=== PATIENT | male | born 1960 | race Caucasian/White ===

== ENCOUNTER 2017-02-26 11:25 | Observation (INO) ==
[2017-02-26] MEDS ORDERED: IPRATROPIUM/ALBUTEROL 3 ML AMPUL.NEB NEB ONE ×2 (11:44→11:45)
--- NOTE | 2017-02-26 11:50 | Emergency Department Note ---
SOB HPI - General Chief Complaint: Shortness of Breath/Dyspnea Stated Complaint: SOB Worse when laying down Time Seen by Provider: 02/26/17 11:31 Source: patient Mode of arrival: ambulatory Limitations: no limitations - History of Present Illness 56 year old male presents with 1 year history of shortness of breath. This has worsened in the last week. He has some chest tightness at times as well. No chest pain or dizziness. He has not seen a doctor in 12 years. He has smoked a pack a day for 20-25 years. He feels the shortness of breath is worse at night but does not wake him up. He feels better if he sits up. He does not take any medications. He does not feel like he has been sick lately. No fever. He has a smokers cough. No abdominal pain. No pedal edema. He also has some SOB when he exerts himself - Related Data Home Medications Medication Instructions Recorded Confirmed No Known Home Meds [No Known Home 02/26/17 02/26/17 Meds] Allergies Allergy/AdvReac Type Severity Reaction Status Date / Time No Known Drug Allergies Allergy Unverified 02/26/17 11:32 Review of Systems All systems ED: reviewed and negative except as stated. Past Medical History - Past Medical History Medical history: Reports: non-contributory Surgical history ED: Reports: other (eye surgery) Family history: Reports: non-contributory - Social History smoking status: Current every day smoker Physical Exam - General Limitations: no limitations General appearance: alert, in no apparent distress - Head Head exam: atraumatic - Eye Eye exam: Present: normal appearance. Absent: conjunctival injection - Neck Neck exam: Present: normal inspection, full ROM. Absent: tenderness, lymphadenopathy - Chest Chest inspection: Present: normal inspection, symmetric chest wall rise - Respiratory Respiratory exam: Present: wheezes (in all lung smith) - Cardiovascular Cardiovascular exam: Present: tachycardia, irregular rhythm, normal heart sounds - Abdominal Exam Abdominal exam: Present: soft, normal bowel sounds. Absent: tenderness - Extremities Exam Extremities exam: Present: normal inspection, full ROM - Back Exam Back exam: Present: normal inspection, full ROM - Neurological Exam Neurological exam: Present: alert, oriented X3, CN II-XII intact, normal gait - Psychiatric Psychiatric exam: Present: normal affect, normal mood - Skin Skin exam: Present: warm, dry, intact Course Course Narrative: [place] a lot better and wheezes were gone after Duoneb Vital Signs Temperature 97.2 F L 02/26/17 11:26 Pulse Rate 63 02/26/17 11:26 Respiratory Rate 18 02/26/17 11:26 Blood Pressure 164/68 02/26/17 11:26 Pulse Oximetry (%) 97 02/26/17 11:26 Temperature 97.2 F L 02/26/17 11:26 Pulse Rate 123 H 02/26/17 13:25 Respiratory Rate 12 02/26/17 14:00 Blood Pressure 119/106 02/26/17 13:36 Pulse Oximetry (%) 97 02/26/17 14:00 Shortness of Breath/Dyspnea - Lab Data Lab results reviewed: Yes I reviewed the patient's lab results. Result diagrams: 02/26/17 12:03 02/26/17 12:03 Lab Results 02/26/17 02/26/17 02/26/17 Range/Units 12:03 12:03 12:03 WBC 8.4 (4.5-11.0) K/mcL RBC 4.89 (4.50-5.90) M/mcL Hgb 16.7 H (13.5-16.5) g/dL Hct 49.1 (41.0-55.0) % MCV 100.3 H (80.0-100.0) fL MCH 34.2 H (26.0-34.0) pg MCHC 34.1 (31.0-36.0) g/dL RDW 13.9 (11.5-14.5) % Plt Count 170 (140-440) K/mcL MPV 8.6 (7.4-10.4) fL Total Counted 100 Seg Neutrophils % 76 (38-78) % Band Neutrophils % Not Reportable Lymphocytes % 15 (15-49) % Monocytes % (Manual) 7 (1-12) % Reactive Lymphocytes 2 (0-2) % Platelet Estimate Normal (NORMAL) RBC Morphology Abnorm A (NORMAL) Macrocytosis 1+ A (NONE SEEN) VBG Lactic Acid 1.3 (0.5-2.2) mmol/L Sodium 138 (133-145) mmol/L Potassium 4.2 (3.3-5.1) mmol/L Chloride 99 (96-108) mmol/L Carbon Dioxide 25 (22-30) mmol/L Anion Gap 14.0 (8-16) BUN 17 (6-20) mg/dl Creatinine 1.0 (0.7-1.2) mg/dl GFR Calculation 83 Glucose 155 H (70-105) mg/dL Calcium 9.0 (8.6-10.4) mg/dl Magnesium (1.6-2.5) mg/dL Total Bilirubin 2.4 H (0.0-1.0) mg/dL AST 39 H (0-37) U/l ALT 37 (0-40) U/l Alkaline Phosphatase 76 (39-117) U/L Troponin T (0-0.03) ng/ml NT-Pro-B Natriuret Pep 9499.0 H (0-125) pg/ml Total Protein 6.3 (5.9-8.4) gm/dL Albumin 4.0 (3.2-5.2) gm/dL Globulin 2.3 (2.2-3.7) gm/dL Albumin/Globulin Ratio 1.7 (1.0-2.3) TSH (0.27-5.01) uIU/ml Free T4 (0.7-1.7) ng/dl Thyroxine (T4) (5.0-12.0) ug/dl 02/26/17 02/26/17 Range/Units 12:03 12:03 WBC (4.5-11.0) K/mcL RBC (4.50-5.90) M/mcL Hgb (13.5-16.5) g/dL Hct (41.0-55.0) % MCV (80.0-100.0) fL MCH (26.0-34.0) pg MCHC (31.0-36.0) g/dL RDW (11.5-14.5) % Plt Count (140-440) K/mcL MPV (7.4-10.4) fL Total Counted Seg Neutrophils % (38-78) % Band Neutrophils % Lymphocytes % (15-49) % Monocytes % (Manual) (1-12) % Reactive Lymphocytes (0-2) % Platelet Estimate (NORMAL) RBC Morphology (NORMAL) Macrocytosis (NONE SEEN) VBG Lactic Acid (0.5-2.2) mmol/L Sodium (133-145) mmol/L Potassium (3.3-5.1) mmol/L Chloride (96-108) mmol/L Carbon Dioxide (22-30) mmol/L Anion Gap (8-16) BUN (6-20) mg/dl Creatinine (0.7-1.2) mg/dl GFR Calculation Glucose (70-105) mg/dL Calcium (8.6-10.4) mg/dl Magnesium 2.2 (1.6-2.5) mg/dL Total Bilirubin (0.0-1.0) mg/dL AST (0-37) U/l ALT (0-40) U/l Alkaline Phosphatase (39-117) U/L Troponin T < 0.01 (0-0.03) ng/ml NT-Pro-B Natriuret Pep (0-125) pg/ml Total Protein (5.9-8.4) gm/dL Albumin (3.2-5.2) gm/dL Globulin (2.2-3.7) gm/dL Albumin/Globulin Ratio (1.0-2.3) TSH 1.63 (0.27-5.01) uIU/ml Free T4 1.28 (0.7-1.7) ng/dl Thyroxine (T4) 5.2 (5.0-12.0) ug/dl - Radiology Data Radiology results reviewed: Yes I reviewed the patient's radiology results. - EKG Data EKG attestation: Yes I reviewed and interpreted this EKG. (A-fib with PVCs) Disposition Clinical Impression: Atrial fibrillation Disposition: Xfer As Inpt ([facility]) Condition: Fair
--- NOTE | 2017-02-26 12:07 | XRay Report ---
CLINICAL INFORMATION: Dyspnea TECHNIQUE: Upright PA and lateral chest x-ray COMPARISON: None. FINDINGS: There are septal lines at both lung bases. These may be chronic but acute interstitial pulmonary edema is possible. Lungs are otherwise negative. No parenchymal consolidation. Heart size and vascularity are unremarkable. Kaylie and mediastinum are negative. No pleural fluid IMPRESSION: 1. Bibasilar septal lines. Interstitial edema is possible. 2. No focal consolidation. Interpreted and Authenticated by: Deondre Man 02/26/17
[2017-02-26 12:32] LABS: Mean Cell Volume 100.3 fL (80.0-100.0); Mean Corpuscular HGB Conc 34.1 g/dL (31.0-36.0); Mean Corpuscular Hemoglobin 34.2 pg (26.0-34.0); Platelet Count 170 K/mcL (140-440); RBC 4.89 M/mcL (4.50-5.90); Red Cell Distribution Width 13.9 % (11.5-14.5)
[2017-02-26 12:52] LABS: ALT/SGPT 37 U/l (0-40); Albumin/Globulin Ratio 1.7 (1.0-2.3); Alkaline Phosphatase 76 U/L (39-117); Blood Urea Nitrogen 17 mg/dl (6-20)
[2017-02-26 13:03] LABS: Lymphocytes % 15 % (15-49); Macrocytosis 1+ (NONE SEEN); Monocytes % (Manual) 7 % (1-12); Platelet Estimate NORMAL (NORMAL); RBC Morphology ABNORM (NORMAL); Segmented Neutrophils % 76 % (38-78)
[2017-02-26 13:16] LABS: Free T4 (Free Thyroxine) 1.28 ng/dl (0.7-1.7)
[2017-02-26 13:17] LABS: Magnesium 2.2 mg/dL (1.6-2.5); T4 (Thyroxine) 5.2 ug/dl (5.0-12.0)
[2017-02-26] MEDS ORDERED: METOPROLOL TARTRATE 5 MG/5 ML VIAL IV ONE (13:29)
[2017-02-26] MEDS: METOPROLOL TARTRATE 5 MG/5 ML VIAL IV SCH ×2 (13:31→13:45)
[2017-02-26] MEDS ORDERED: DILTIAZEM 25 MG/5 ML VIAL IV ONE (13:42)
[2017-02-26] MEDS ORDERED: DILTIAZEM 125 MG in 0.9 % SODIUM CHLORIDE 100 ML IV ONE (13:44)
[2017-02-26] MEDS ORDERED: DILTIAZEM 125 MG in 0.9 % SODIUM CHLORIDE 100 ML IV SCH (13:45)
[2017-02-26] MEDS ORDERED: IOPAMIDOL 100 ML BOTTLE IV ONE (15:16)
[2017-02-26] MEDS ORDERED: ONDANSETRON 4 MG/2 ML VIAL IV PRN (15:44)
[2017-02-26] MEDS ORDERED: ACETAMINOPHEN 1,000 MG/100 ML BOTTLE IV PRN (15:44)
[2017-02-26] MEDS ORDERED: MAGNESIUM SULFATE 2 GM/50 ML BAG IV PRN (15:44)
[2017-02-26] MEDS ORDERED: ACETAMINOPHEN 325 MG TABLET PO PRN (15:44)
[2017-02-26] MEDS ORDERED: POTASSIUM CHLORIDE 20 MEQ PACKET PO PRN (15:44)
[2017-02-26] MEDS ORDERED: DILTIAZEM 30 MG TABLET PO ONE (15:56)
[2017-02-26] MEDS ORDERED: FUROSEMIDE 40 MG/4 ML VIAL IV SCH (16:00)
[2017-02-26] MEDS ORDERED: FUROSEMIDE 20 MG/2 ML VIAL IV ONE ×2 (16:00→22:00)
[2017-02-26 16:15] LABS: C-Reactive Protein 0.3 mg/dl (0.0-0.8)
[2017-02-26] MEDS: WARFARIN 5 MG TABLET PO SCH (16:18)
[2017-02-26] MEDS: IPRATROPIUM/ALBUTEROL 3 ML AMPUL.NEB NEB SCH ×2 (16:19→19:42)
[2017-02-26] MEDS: 0.9 % SODIUM CHLORIDE 10 ML SYRINGE IV SCH (16:20)
[2017-02-26] MEDS ORDERED: DIGOXIN 500 MCG/2 ML AMPUL IV ONE ×2 (17:53→18:34)
[2017-02-26] MEDS: BUDESONIDE 0.5 MG/2 ML AMPUL.NEB NEB SCH (19:42)
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
[2017-02-27] MEDS: DOCUSATE SODIUM 100 MG CAPSULE PO SCH ×3 (00:51→20:38)
[2017-02-27] MEDS: CYANOCOBALAMIN (VITAMIN B-12) 500 MCG TABLET PO SCH ×3 (00:52→20:38)
[2017-02-27] MEDS: SENNOSIDES/DOCUSATE SODIUM 1 TAB TABLET PO SCH ×2 (00:52→20:39)
[2017-02-27] MEDS: HEPARIN 5,000 UNIT/ML VIAL SQ SCH ×3 (00:52→20:38)
[2017-02-27] MEDS: IPRATROPIUM/ALBUTEROL 3 ML AMPUL.NEB NEB SCH ×7 (00:53→23:13)
[2017-02-27] MEDS: 0.9 % SODIUM CHLORIDE 10 ML SYRINGE IV SCH ×6 (00:58→20:39)
[2017-02-27 05:45] LABS: ALT/SGPT 30 U/l (0-40); Albumin 3.8 gm/dL (3.2-5.2); Albumin/Globulin Ratio 1.8 (1.0-2.3); Alkaline Phosphatase 73 U/L (39-117); Bilirubin,Direct 0.4 mg/dL (0.0-0.3); Blood Urea Nitrogen 12 mg/dl (6-20); Gamma Glutamyl Transpeptidase 55 U/L (8-61); Uric Acid 6.4 mg/dL (2.5-8.0)
[2017-02-27 06:31] LABS: Band Neutrophils % 2 % (0-10); Basophils % (Manual) 1 % (0-2); Eosinophils % (Manual) 5 % (0-7); Lymphocytes % 19 % (15-49); Mean Corpuscular HGB Conc 34.6 g/dL (31.0-36.0); Mean Corpuscular Hemoglobin 34.6 pg (26.0-34.0); Monocytes % (Manual) 6 % (1-12); Platelet Count 159 K/mcL (140-440); Platelet Estimate NORMAL (NORMAL); RBC 4.87 M/mcL (4.50-5.90); RBC Morphology NORMAL (NORMAL); Red Cell Distribution Width 13.6 % (11.5-14.5); Segmented Neutrophils % 55 % (38-78)
[2017-02-27] MEDS: BUDESONIDE 0.5 MG/2 ML AMPUL.NEB NEB SCH ×2 (07:09→19:22)
[2017-02-27] MEDS ORDERED: DILTIAZEM 30 MG TABLET PO SCH (07:30)
[2017-02-27] MEDS: MULTIVIT,THER IRON,CA,FA & MIN 1 TABLET PO SCH (08:09)
[2017-02-27] MEDS: FOLIC ACID 1 MG TABLET PO SCH (08:09)
[2017-02-27] MEDS: FUROSEMIDE 20 MG/2 ML VIAL IV SCH ×2 (08:12→17:18)
[2017-02-27] MEDS: THIAMINE 100 MG in 0.9 % SODIUM CHLORIDE 50 ML IV SCH (08:53)
[2017-02-27] MEDS: METOPROLOL SUCCINATE 25 MG TAB.XL.24H PO SCH (10:00)
[2017-02-27] MEDS: LISINOPRIL 5 MG TABLET PO SCH (10:07)
--- NOTE | 2017-02-27 10:54 | Internal Med Progress Note ---
Medical - PN: Subj Patient information: Note initiated : 02/27/17 at 10:52 am Service Date, if different from initiated Date: [] Patient: Virginia Perez 56 y/o M admitted on 02/26/17 for SOB Worse when laying down. Chief Complaint: [] Interval history: 02/26- 56-year-old admitted with A. fib with RVR and decompensated heart failure. Respond well to diltiazem. Started on aggressive diuresis in light of underlying pulmonary edema. Unclear etiology. Await further evaluation including echocardiogram/TSH. 02/27- initial echo EF 25%. Calcium channel blockers discontinued. Digoxin load. Start extended release beta michelle/TRA inhibitor. Aggressive counseling performed. Chads score to mandating anticoagulation. Recommend outpatient cardiology follow-up for evaluation of etiology of cardiomyopathy with systolic dysfunction Or coronary artery disease as etiology. possible discharge in 24 hours if adequate rate control achieved and patient tolerates beta michelle/digoxin/TRA inhibitor. - Constitutional Vitals: Vital Signs Temp Pulse Resp BP Pulse Ox 98.3 F 105 H 16 130/90 95 02/27/17 08:01 02/27/17 07:14 02/27/17 07:14 02/27/17 09:01 02/27/17 09:08 Period Temp Pulse Resp BP Sys/[place] Pulse Ox Last 24 Hr 98.3 F-99 F 75-105 16-24 116-149/83-111 90-100 Intake and Output 02/26/17 02/27/17 02/27/17 21:59 05:59 13:59 Intake Total 801 / 803 480 / 480 300 / 300 Output Total 2024 2575 / 2575 1150 / 1150 Balance -1224 / -1222 -2095 / -5 -850 / -850 Weight 182 lb 7 oz Intake & Output: Intake & Output 02/26/17 02/27/17 02/27/17 21:59 05:59 13:59 Intake Total 801 / 803 480 / 480 300 / 300 Output Total 2024 2575 / 2575 1150 / 1150 Balance -1224 / -1222 -2095 / -2095 -850 / -850 Weight 182 lb 7 oz Intake: IV Cardizem 125 mg In Sodium Chloride 0.9% 100 ml @ 5 MG/HR 5 mls/hr IV ONCE ONE Rx#:[id number] Oral 790 / 790 480 / 480 300 / 300 Output: Void Amount 2024 / 2024 2575 / 2575 1150 / 1150 Other: Meal Dinner Breakfast Percent of Meal Consumed 75% 100% Feeding Ability Independent # Voids 1 General appearance: cooperative, no acute distress Exam: Lymphedema improved lert oriented Breathing much improved anxious Medical - PN: Obj Da - Labs CBC & Chem 7: 02/27/17 04:30 02/27/17 04:30 Labs: Abnormal Lab Results 02/27/17 02/27/17 04:30 04:30 Hgb 16.9 H MCH 34.6 H Reactive Lymphocytes 12 H Total Bilirubin 2.4 H Direct Bilirubin 0.4 H Lactate Dehydrogenase 356 H Globulin 2.1 L Meds: Medications Acetaminophen (Tylenol) 650 mg PO Q4-6HP PRN PRN Reason: PAIN/FEVER > 101 Albuterol/Ipratropium (Duoneb) 3 ml NEB Q4HRT [facility] Last Admin: 02/27/17 07:09 Dose: 3 ml Budesonide (Pulmicort) 0.5 mg NEB Q12 [facility] Last Admin: 02/27/17 07:09 Dose: 0.5 mg Cyanocobalamin (Vitamin B-12) 1,000 mcg PO BID [facility] Stop: 03/03/17 09:01 Last Admin: 02/27/17 08:09 Dose: 1,000 mcg Docusate Sodium (Colace) 100 mg PO BID [facility] Last Admin: 02/27/17 08:09 Dose: 100 mg Folic Acid (Folic Acid) 1 mg PO DAILY [facility] Last Admin: 02/27/17 08:09 Dose: 1 mg Furosemide (Lasix) 20 mg IV BIDD [facility] Last Admin: 02/27/17 08:12 Dose: 20 mg Heparin Sodium (Porcine) (Heparin) 5,000 unit SQ Q12 [facility] Last Admin: 02/27/17 08:10 Dose: 5,000 unit Magnesium Sulfate (Magnesium Sulfate) 2 gm in 50 mls @ 50 mls/hr IV UD PRN PRN Reason: MG = or < 1.7 Acetaminophen (Ofirmev) 1,000 mg in 100 mls @ 200 mls/hr IV Q6HP PRN PRN Reason: PAIN/FEVER > 101 Thiamine HCl 100 mg/ Sodium (Chloride) 51 mls @ 50 mls/hr IV DAILY [facility] Stop: 03/01/17 10:02 Last Admin: 02/27/17 08:53 Dose: 50 mls/hr Iron Carb/Multivit/Dimock/Folic Acid (Multivitamin W/Minerals) 1 tab PO DAILY [facility] Last Admin: 02/27/17 08:09 Dose: 1 tab Lisinopril (Zestril) 5 mg PO DAILY [facility] Last Admin: 02/27/17 10:07 Dose: 5 mg Metoprolol Succinate (Toprol Xl) 25 mg PO DAILY [facility] Last Admin: 02/27/17 10:00 Dose: 25 mg Ondansetron HCl (Zofran) 4 mg IV Q4-6HP PRN PRN Reason: Nausea And Vomiting Potassium Chloride (Klor-Con) 40 meq PO DAILYP PRN PRN Reason: K+ < 3.5 Senna/Docusate Sodium (Senna Plus Tablet) 1 tab PO HS [facility] Last Admin: 02/27/17 00:52 Dose: Not Given Sodium Chloride (Saline Flush) 10 ml IV Q8 [facility] Last Admin: 02/27/17 10:02 Dose: 10 ml Warfarin Sodium (Coumadin Per Pharmacy) 1 order PO UD [facility] Warfarin Sodium (Coumadin) 5 mg PO DAILY@1400 [facility] Last Admin: 02/26/17 16:18 Dose: 5 mg Medical - PN: A/P - Time Spent With Patient Total time spent is greater than 50% in coordination of care (as documented) at patient's floor/unit and/or counseling patient: 25 - 35 minutes (1) Heart failure, systolic, with acute decompensation Status: Acute Assessment and plan: * acute decompensated systolic heart failure with initial EF around 25-30%. started on diuretics. Initiate TRA inhibitor/beta michelle/digoxin. utpatient cardiology follow-up for evaluation of underlying cause for cardiomyopathy. Continue IV thiamine * Atrial fibrillation with RVR- rate controlled on beta michelle/digoxin. Chads score to mandating anticoagulation. at this timestarted on aspirin * hypertension start michelle/TRA inhibitor. systolics around 130 * Nicotine dependence-patient tending to quit. Counseled plan * Aggressive diuresis * TRA inhibitor beta michelle and digoxin * Outpatient cardiology follow-up for evaluation of cardiomyopathy * Possible discharge in 24 hours Current Visit: Yes Medical - PN: Qual - VTE Deep Vein Thrombosis/Pulmonary Embolism Present on Admission: No
[2017-02-27] MEDS: WARFARIN 5 MG TABLET PO SCH (13:58)
[2017-02-28] MEDS: IPRATROPIUM/ALBUTEROL 3 ML AMPUL.NEB NEB SCH ×4 (02:41→15:24)
[2017-02-28] MEDS: 0.9 % SODIUM CHLORIDE 10 ML SYRINGE IV SCH ×2 (05:13→12:07)
[2017-02-28 05:56] LABS: Mean Cell Volume 100.9 fL (80.0-100.0); Mean Corpuscular HGB Conc 34.1 g/dL (31.0-36.0); Mean Corpuscular Hemoglobin 34.4 pg (26.0-34.0); Platelet Count 158 K/mcL (140-440); RBC 5.04 M/mcL (4.50-5.90); Red Cell Distribution Width 13.9 % (11.5-14.5)
[2017-02-28 06:13] LABS: ALT/SGPT 42 U/l (0-40); Albumin 3.7 gm/dL (3.2-5.2); Albumin/Globulin Ratio 1.8 (1.0-2.3); Alkaline Phosphatase 73 U/L (39-117); Bilirubin,Direct 0.3 mg/dL (0.0-0.3); Blood Urea Nitrogen 13 mg/dl (6-20); Gamma Glutamyl Transpeptidase 51 U/L (8-61); Magnesium 2.1 mg/dL (1.6-2.5); Uric Acid 6.5 mg/dL (2.5-8.0)
[2017-02-28 06:39] LABS: Eosinophils % (Manual) 4 % (0-7); Lymphocytes % 31 % (15-49); Macrocytosis 1+ (NONE SEEN); Monocytes % (Manual) 13 % (1-12); Platelet Estimate NORMAL (NORMAL); RBC Morphology ABNORM (NORMAL); Segmented Neutrophils % 52 % (38-78)
[2017-02-28] MEDS: BUDESONIDE 0.5 MG/2 ML AMPUL.NEB NEB SCH (07:22)
[2017-02-28] MEDS: FUROSEMIDE 20 MG/2 ML VIAL IV SCH (08:10)
--- NOTE | 2017-02-28 08:36 | XRay Report ---
CLINICAL INFORMATION: Follow-up. Interstitial edema. TECHNIQUE: AP upright portable chest x-ray COMPARISON: 02/26/2017 FINDINGS: Bibasilar septal lines are markedly improved or resolved consistent with decreased interstitial edema. There is cardiomegaly. No focal pulmonary parenchymal infiltrate. No parenchymal mass. Kaylie and mediastinum are negative. IMPRESSION: 1. Findings consistent with improved interstitial pulmonary edema 2. Cardiomegaly Interpreted and Authenticated by: Deondre Man 02/28/17
[2017-02-28] MEDS ORDERED: ASPIRIN 325 MG ENTERIC COATED TABLET PO SCH (09:00)
[2017-02-28] MEDS: THIAMINE 100 MG in 0.9 % SODIUM CHLORIDE 50 ML IV SCH (09:25)
[2017-02-28] MEDS: METOPROLOL SUCCINATE 25 MG TAB.XL.24H PO SCH (09:29)
[2017-02-28] MEDS: DOCUSATE SODIUM 100 MG CAPSULE PO SCH (09:31)
[2017-02-28] MEDS: MULTIVIT,THER IRON,CA,FA & MIN 1 TABLET PO SCH (09:34)
[2017-02-28] MEDS: HEPARIN 5,000 UNIT/ML VIAL SQ SCH (09:34)
[2017-02-28] MEDS: FOLIC ACID 1 MG TABLET PO SCH (09:34)
[2017-02-28] MEDS: CYANOCOBALAMIN (VITAMIN B-12) 500 MCG TABLET PO SCH (09:34)
[2017-02-28] MEDS: LISINOPRIL 5 MG TABLET PO SCH (09:38)
--- NOTE | 2017-02-28 10:08 | Discharge Summary ---
Medical - DS: Prov Patient information: Note initiated : 02/28/17 at 10:04 am Service Date, if different from initiated Date: [] Patient: Virginia Perez 56 y/o M admitted on 02/26/17 for SOB Worse when laying down. Chief Complaint: [] Date of admission: 02/26/17 15:15 Discharge date: 02/28/17 Primary care physician: [f_Reg Prim Care Provider] Medical - DS: Meds - Discharge Medications Prescriptions: Aspirin [Ecotrin] 162 mg PO DAILY #30 tab.ec Digoxin [Lanoxin] 62.5 mcg PO DAILY #60 tablet Furosemide [Lasix] 20 mg PO DAILY #60 tablet Lisinopril [Zestril] 5 mg PO DAILY #60 tablet Metoprolol Succinate [Toprol Xl] 50 mg PO DAILY #60 tab.xl.24h Active and Home Medications: Home Medications Ibuprofen [Motrin Ib] 400 mg PO TIDP PRN 02/26/17 [History Confirmed 02/28/17 Last Taken 02/16/17] Aspirin [Ecotrin] 162 mg PO DAILY #30 tab.ec 02/28/17 [Rx Last Taken Unknown] Digoxin [Lanoxin] 62.5 mcg PO DAILY #60 tablet 02/28/17 [Rx Last Taken Unknown] Furosemide [Lasix] 20 mg PO DAILY #60 tablet 02/28/17 [Rx Last Taken Unknown] Lisinopril [Zestril] 5 mg PO DAILY #60 tablet 02/28/17 [Rx Last Taken Unknown] Metoprolol Succinate [Toprol Xl] 50 mg PO DAILY #60 tab.xl.24h 02/28/17 [Rx Last Taken Unknown] Medical - DS: Hosp Hospital course: DISCHARGE DIAGNOSIS * Acute decompensated systolic heart failure with initial EF around 25-30%. continue diuretics along withACE inhibitor/beta michelle/digoxin. schedule outpatient cardiology follow-up for evaluation of underlying cause for cardiomyopathy(high risk ischemic cardiomyopathy). status post 3 doses IV Timentin * Atrial fibrillation with RVR- rate controlled on beta michelle/digoxin. Chads score to mandating anticoagulation. we will continue aspirin at this time as patient does not have a primary care physician. * hypertension start michelle/TRA inhibitor. systolics around 130 * Nicotine dependence-patient willing to quit. Counseled Brief hospital course Mr. Perez is a 56 year old male 02/26- 56-year-old admitted with A. fib with RVR and decompensated heart failure. Respond well to diltiazem. Started on aggressive diuresis in light of underlying pulmonary edema. Unclear etiology. Await further evaluation including echocardiogram/TSH. 02/27- initial echo EF 25%. Calcium channel blockers discontinued. Digoxin load. Start extended release beta michelle/TRA inhibitor. Aggressive counseling performed. Chads score to mandating anticoagulation. Recommend outpatient cardiology follow-up for evaluation of etiology of cardiomyopathy with systolic dysfunction Or coronary artery disease as etiology. possible discharge in 24 hours if adequate rate control achieved and patient tolerates beta michelle/digoxin/TRA inhibitor. 02/28-adequately rate controlled. diuresed well and feeling much improved. Continue digoxin/beta michelle/TRA inhibitor/aspirin as advised. Detailed discharge instructions as below. Follow with cardiology/pcp Discharge diagnosis: . - Time Spent with Patient Total time spent providing and/or coordinating discharge services: Greater than 30 minutes Medical - DS: Exam - Constitutional Vitals: Vital Signs Temp Pulse Pulse Resp BP BP Pulse Ox 02/28/17 07:48 98.3 F 20 125/91 95 02/28/17 07:23 86 16 95 02/28/17 04:00 98.5 F 22 132/95 100 02/28/17 02:58 80 20 02/27/17 23:52 98.2 F 20 116/82 96 02/27/17 20:00 109 H 22 95 02/27/17 19:30 98 H 16 02/27/17 19:25 94 02/27/17 19:00 97.3 F L 20 117/73 96 02/27/17 15:58 98.7 F 20 136/84 96 02/27/17 15:30 88 16 02/27/17 15:26 93 02/27/17 15:25 93 02/27/17 11:52 96.8 F L 20 132/95 97 02/27/17 11:31 86 18 Intake and Output 02/27/17 02/28/17 02/28/17 21:59 05:59 13:59 Intake Total 840 / 840 240 / 240 Output Total 400 / 400 Balance 840 / 840 -160 / -160 Intake: Oral 840 / 840 240 / 240 Output: Void Amount 400 / 400 Other: Meal Dinner Percent of Meal Consumed 100% Feeding Ability Independent # Voids 2 1 Weight 178 lb Medical - DS: Data Labs on day of discharge: Labs from last 24 hours 02/28/17 02/28/17 02/28/17 04:55 04:55 04:55 WBC 6.0 RBC 5.04 Hgb 17.3 H Hct 50.8 MCV 100.9 H MCH 34.4 H MCHC 34.1 RDW 13.9 Plt Count 158 MPV 8.6 Total Counted 100 Seg Neutrophils % 52 Band Neutrophils % Not Reportable Lymphocytes % 31 Monocytes % (Manual) 13 H Eosinophils % (Manual) 4 WBC Morphology Normal Platelet Estimate Normal RBC Morphology Abnorm A Macrocytosis 1+ A PT 13.6 INR 1.0 Sodium 139 Potassium 3.7 Chloride 98 Carbon Dioxide 29 Anion Gap 12.0 BUN 13 Creatinine 0.9 GFR Calculation 94 Glucose 93 Uric Acid 6.5 Calcium 9.0 Phosphorus 4.4 Magnesium 2.1 Total Bilirubin 1.6 H Direct Bilirubin 0.3 GGT 51 AST 45 H ALT 42 H Alkaline Phosphatase 73 Lactate Dehydrogenase 213 Total Protein 5.8 L Albumin 3.7 Globulin 2.1 L Albumin/Globulin Ratio 1.8 Triglycerides 83 Medical - DS: A/P - Patient/Caregiver Discharge Instructions Activity: as per physical therapy Diet: Low Sodium (2gm) Additional Instructions: Follow-up PCP in 5 days follow-up with cardiology in 2 weeks for evaluation of cardiomyopathy and depressed EF 25%- high risk only artery disease. patient will also be a candidate for defibrillator in light of high risk sudden cardiac with depressed jection fraction continue digoxin/TRA inhibitor/beta michelle as advised Continue Lasix 20 mg daily please check daily weights measurements and take additional 20- 40 mg Lasix for 3 days if weight gain over 4 pounds over baseline or worsening shortness of breath and call primary care physician if inadequate response to Lasix. I recommend primary care physician to check digoxin level CBC BMP as a posthospital follow-up. also recommend discussions about anticoagulation for CVA prophylaxis given chads score of 2. however at this time since patient does not have primary care physician aspirin would be a better choice. All meals on chair sitting upright at 90 degrees to prevent aspiration Return to ER if worsening fever chills shortness of breath, diarrhea, bleeding Review risk and side effect profile of medications including digoxin/beta michelle/TRA inhibitor- Side effect may include mild low blood pressure/ dizziness lightheadedness and even which can be prevented by close follow- up with PCP and monitoring for side effects Refrain from smoking and alcohol at all costs Continue low sodium diet and activity as advised Discussed importance of medication adherence Please review medication list with patient prior to discharge Please schedule follow-up with PCP/Providers prior to discharge and provide printouts Portions of this chart may have been created with [employer] voice recognition software. Occasional wrong-word or ?sound-like? substitutions may have occurred due to the inherent limitations of voice recognition software. Please read the chart carefully and recognize, using context, where the substitutions have occurred. CC- PCP Prescriptions: Aspirin [Ecotrin] 162 mg PO DAILY #30 tab.ec Digoxin [Lanoxin] 62.5 mcg PO DAILY #60 tablet Furosemide [Lasix] 20 mg PO DAILY #60 tablet Lisinopril [Zestril] 5 mg PO DAILY #60 tablet Metoprolol Succinate [Toprol Xl] 50 mg PO DAILY #60 tab.xl.24h - Problem Maintenance (1) Heart failure, systolic, with acute decompensation Status: Acute - Follow up Plan Disposition: Home, Self-Care Prognosis: Fair Rehab Potential: Undetermined I certify that the patient requires SNF services: No Overall status at discharge: patient is progressing back to baseline Medical - DS: Qual - VTE Deep Vein Thrombosis/Pulmonary Embolism Present on Admission: No
[2017-02-28] MEDS ORDERED: METOPROLOL SUCCINATE 25 MG TAB.XL.24H PO ONE (10:13)
[2017-02-28] MEDS ORDERED: DIGOXIN 125 MCG TABLET PO ONE (10:15)
[2017-02-28] MEDS ORDERED: WARFARIN 7.5 MG TABLET PO SCH (15:00)
--- NOTE | 2017-02-28 15:17 | Cat Scan Report ---
CLINICAL INFORMATION: Acute right sided weakness for 15 minutes COMPARISON: None. TECHNIQUE: Axial noncontrast-enhanced images through the brain. FINDINGS: No acute intracranial hemorrhage. No intra-axial hematoma. There is white matter abnormality with subcortical low density. Clinical correlation for history of diabetes or hypertension recommended. No well-defined attenuation abnormality. No mass effect. No midline shift. No hydrocephalus. Basilar cisterns are normal. Brainstem and cerebellum are negative. No extra-axial, intracranial abnormality. No subdural or epidural hematoma. No hyperdense middle cerebral artery sign No calvarial lesions. Temporal bones are negative. IMPRESSION: 1. White matter abnormality consistent with small vessel ischemic change. 2. No acute or focal abnormality. No intracranial hemorrhage. Interpreted and Authenticated by: Deondre Man 02/28/17
[2017-02-28] MEDS ORDERED: ALTEPLASE 100 MG/100 ML VIAL IV ONE (15:30)
--- NOTE | 2017-02-28 15:59 | Transfer Summary ---
Transfer Discharge Sum: Prov Patient information: Note initiated : 02/28/17 at 3:53 pm Service Date, if different from initiated Date: [] Patient: Virginia Perez 56 y/o M admitted on 02/26/17 for SOB Worse when laying down. Chief Complaint: [] Date of admission: 02/26/17 15:15 Discharge Date: 02/28/17 Primary care physician: [f_Reg Prim Care Provider] Transfer Discharge Sum: Med - Medications Active and Home Medications: Home Medications Ibuprofen [Motrin Ib] 400 mg PO TIDP PRN 02/26/17 [History Confirmed 02/28/17] Aspirin [Ecotrin] 162 mg PO DAILY #30 tab.ec 02/28/17 [Rx] Digoxin [Lanoxin] 62.5 mcg PO DAILY #60 tablet 02/28/17 [Rx] Furosemide [Lasix] 20 mg PO DAILY #60 tablet 02/28/17 [Rx] Lisinopril [Zestril] 5 mg PO DAILY #60 tablet 02/28/17 [Rx] Metoprolol Succinate [Toprol Xl] 50 mg PO DAILY #60 tab.xl.24h 02/28/17 [Rx] Active Medications Acetaminophen (Tylenol) 650 mg PO Q4-6HP PRN PRN Reason: PAIN/FEVER > 101 Albuterol/Ipratropium (Duoneb) 3 ml NEB Q4HRT [facility] Last Admin: 02/28/17 15:24 Dose: Not Given Aspirin (Ecotrin) 325 mg PO DAILY [facility] Last Admin: 02/28/17 09:34 Dose: 325 mg Budesonide (Pulmicort) 0.5 mg NEB Q12 [facility] Last Admin: 02/28/17 07:22 Dose: 0.5 mg Cyanocobalamin (Vitamin B-12) 1,000 mcg PO BID [facility] Stop: 03/03/17 09:01 Last Admin: 02/28/17 09:34 Dose: 1,000 mcg Docusate Sodium (Colace) 100 mg PO BID [facility] Last Admin: 02/28/17 09:31 Dose: Not Given Folic Acid (Folic Acid) 1 mg PO DAILY [facility] Last Admin: 02/28/17 09:34 Dose: 1 mg Furosemide (Lasix) 20 mg IV BIDD [facility] Last Admin: 02/28/17 08:10 Dose: 20 mg Heparin Sodium (Porcine) (Heparin) 5,000 unit SQ Q12 [facility] Last Admin: 02/28/17 09:34 Dose: 5,000 unit Magnesium Sulfate (Magnesium Sulfate) 2 gm in 50 mls @ 50 mls/hr IV UD PRN PRN Reason: MG = or < 1.7 Acetaminophen (Ofirmev) 1,000 mg in 100 mls @ 200 mls/hr IV Q6HP PRN PRN Reason: PAIN/FEVER > 101 Thiamine HCl 100 mg/ Sodium (Chloride) 51 mls @ 50 mls/hr IV DAILY [facility] Stop: 03/01/17 10:02 Last Admin: 02/28/17 09:25 Dose: 50 mls/hr Iron Carb/Multivit/River Rat/Folic Acid (Multivitamin W/Minerals) 1 tab PO DAILY [facility] Last Admin: 02/28/17 09:34 Dose: 1 tab Lisinopril (Zestril) 5 mg PO DAILY [facility] Last Admin: 02/28/17 09:38 Dose: 5 mg Metoprolol Succinate (Toprol Xl) 25 mg PO DAILY [facility] Last Admin: 02/28/17 09:29 Dose: 25 mg Ondansetron HCl (Zofran) 4 mg IV Q4-6HP PRN PRN Reason: Nausea And Vomiting Potassium Chloride (Klor-Con) 40 meq PO DAILYP PRN PRN Reason: K+ < 3.5 Senna/Docusate Sodium (Senna Plus Tablet) 1 tab PO HS [facility] Last Admin: 02/27/17 20:39 Dose: Not Given Sodium Chloride (Saline Flush) 10 ml IV Q8 [facility] Last Admin: 02/28/17 12:07 Dose: 10 ml Warfarin Sodium (Coumadin Per Pharmacy) 1 [place] [facility] [place] Sodium (Coumadin) 7.5 mg PO DAILY@1400 [facility] Transfer Discharge Sum: Hosp Hospital course: DISCHARGE DIAGNOSIS * 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 Stroke neurologist consulted. TPN administered within [address] non- con no evidence of bleed. CT contrast being performed. patient being airlifted to [place] [facility] ICU for vascular intervention/thrombolysis. * Acute decompensated systolic heart failure with initial EF around 25-30%. patient was managed on diuretics along with TRA inhibitor/beta michelle/digoxin. schedule outpatient cardiology follow-up for evaluation of underlying cause for cardiomyopathy(high risk ischemic cardiomyopathy). status post 3 doses IV thiamine * Atrial fibrillation with RVR- rate controlled on beta michelle/digoxin. Chads score 2 mandating anticoagulation. we will continue aspirin at this time as patient does not have a primary care physician. however he would be a candidate for anticoagulation once established with outpatient cardiology/PCP * hypertension continue michelle/TRA inhibitor. systolics around 130 * Nicotine dependence-patient willing to quit. Counseled BRIEF HOSPITAL COURSE Mr. Perez is a 56 year old male admitted with A. fib RVR 02/26- 56-year-old admitted with A. fib with RVR and decompensated heart failure. Respond well to diltiazem. Started on aggressive diuresis in light of underlying pulmonary edema. Unclear etiology. Await further evaluation including echocardiogram/TSH. 02/27- initial echo EF 25%. Calcium channel blockers discontinued. Digoxin load. Start extended release beta michelle/TRA inhibitor. Aggressive counseling performed. Chads score to mandating anticoagulation. Recommend outpatient cardiology follow-up for evaluation of etiology of cardiomyopathy with systolic dysfunction Or coronary artery disease as etiology. possible discharge in 24 hours if adequate rate control achieved and patient tolerates beta michelle/digoxin/TRA inhibitor. 02/28-adequately rate controlled. diuresed well and feeling much improved. Continue digoxin/beta michelle/TRA inhibitor/aspirin as advised. Detailed discharge instructions as below. Follow with cardiology/pcp Addendum- Patient was being provided discharge instruction when exactly at 2:45 PM patient noted right-sided weakness along difficulty expressing himself and right facial droop. Code stroke was called. cT head was unremarkable. Stroke neurologist Dr Vicki Viveros at [facility] Recommended TPA. post. Patient is being airlifted to [place] [facility] ICU under Dr. Neal neurologist for further evaluation. Patient undergoing CT angiogram head and neck. - Time Spent with Patient Total time spent providing and/or coordinating transfer services: Greater than 30 minutes Transfer Discharge Sum: Exam - Constitutional Vitals: Vital Signs Temp Pulse Pulse Resp BP BP Pulse Ox 02/28/17 12:00 97.9 F 20 119/77 93 02/28/17 11:34 105 H 18 02/28/17 08:00 97 H 18 95 02/28/17 07:48 98.3 F 20 125/91 95 02/28/17 07:23 86 16 95 02/28/17 04:00 98.5 F 22 132/95 100 02/28/17 02:58 80 20 02/27/17 23:52 98.2 F 20 116/82 96 02/27/17 20:00 109 H 22 95 02/27/17 19:30 98 H 16 02/27/17 19:25 94 02/27/17 19:00 97.3 F L 20 117/73 96 02/27/17 15:58 98.7 F 20 136/84 96 Intake and Output 02/28/17 02/28/17 02/28/17 05:59 13:59 21:59 Intake Total 240 / 240 720 / 720 Output Total 400 / 400 Balance -160 / -160 720 / 720 Intake: Oral 240 / 240 720 / 720 Output: Void Amount 400 / 400 Other: Meal Lunch Percent of Meal Consumed 100% Feeding Ability Independent # Voids 1 Transfer Discharge Sum: Data Procedures and tests throughout hospitalization: Pending Orders 02/27/17 05:51 Smoking Cessation [Education, smoking cessation] .ROUTINE 02/27/17 09:00 Furosemide [Lasix] 20 mg IV BIDD Lisinopril [Zestril] 5 mg PO DAILY Metoprolol Succinate [Toprol Xl] 25 mg PO DAILY 02/28/17 09:00 Aspirin [Ecotrin] 325 mg PO DAILY 02/28/17 10:08 Discharge Order Routine 02/28/17 15:00 Warfarin [Coumadin] 7.5 mg PO DAILY@1400 02/28/17 15:[address] angio head Stat CT angio neck Stat 03/01/17 04:00 INR [Prothrombin Time INR] DAILY 03/02/17 04:00 INR [Prothrombin Time INR] DAILY 03/03/17 04:00 INR [Prothrombin Time INR] DAILY 03/04/17 04:00 INR [Prothrombin Time INR] DAILY Transfer Discharge Sum: A/P - Plan Functional capacity at transfer: bed bound Overall status at transfer: patient is not back to baseline Disposition: [facility] Quality Measure Queries - VTE Deep Vein Thrombosis/Pulmonary Embolism Present on Admission: No
--- NOTE | 2017-02-28 16:33 | Cat Scan Report ---
CLINICAL INFORMATION: Cerebral infarction with right hemiplegia. Patient has received TPA. TECHNIQUE: 80 mL nonionic contrast material injected intravenously. Routine CTA of the neck and head performed. Sagittally and coronally reformatted images. MIP reformatted images COMPARISON: Noncontrast brain CT scan dated 02/28/2017 FINDINGS: Calcified atherosclerotic plaque in the aortic arch. Origin of the left subclavian artery and innominate artery are negative. Origins of the right subclavian and right common carotid arteries are negative. No stenosis. There is calcification at the origin of the left common carotid artery but no hemodynamically significant stenosis. There appears to be associated soft plaque. There is atherosclerotic plaque in the proximal internal carotid arteries bilaterally, left worse than right. No ulceration or hemodynamically significant stenosis. Left internal carotid artery is tortuous. No focal stenosis. Right internal carotid artery is also tortuous without focal stenosis. Petrous, cavernous, supraclinoid segments of the internal carotid arteries are negative. No stenosis or occlusion. M1 segments of the middle cerebral arteries and A1 segments of the anterior cerebral arteries are patent bilaterally. No occlusion or stenosis. There is a short segment stenosis in the anterior segment of the left middle cerebral artery. This extends for length of 5 mm. No evidence for complete occlusion. Vertebral arteries are negative. Basilar artery is negative. No other intracranial abnormality. IMPRESSION: 1. Calcified atherosclerotic plaque, advanced for age 2. Short segment stenosis in the anterior segment of the left middle cerebral artery 3. No internal carotid artery or M1 segment occlusion Interpreted and Authenticated by: Deondre Man 02/28/17
--- NOTE | 2017-02-28 18:28 | Echocardiogram Report ---
ECHOCARDIOGRAM: 2-D and M-mode echocardiography with cardiac Doppler and color flow imaging were performed with a [employer] A[employer]io MX. Indications are rapid atrial fibrillation and heart failure. Overall size of the RA, RV, and aortic root appeared normal. The LA appeared moderately enlarged and the LV appeared mildly to moderately enlarged. LV wall thickness appeared normal. Systolic performance appeared severely and globally depressed. Estimated ejection fraction is 25%. There was no evidence for mural thrombi. The ascending aorta appeared borderline dilated, 3.8 cm diameter. The aortic valve appeared trileaflet and normal. There was no evidence for aortic stenosis or aortic regurgitation by Doppler interrogation. The mitral and tricuspid valves appeared unremarkable. Doppler interrogation of LV inflow disclosed the so-called restrictive pattern as can be seen with heart failure. Mitral regurgitation, probably moderately severe (3+), was demonstrated. Mitral E-point septal separation was increased corroborating reduced LV ejection fraction. Pulmonary venous interrogation disclosed ''d'' wave dominance indicating elevated pulmonary wedge pressure. The pulmonic valve was not visualized. Pulmonary artery acceleration time appeared shortened. There was no evidence for pulmonic stenosis. Pulmonic regurgitation, probably trivial, and tricuspid regurgitation, probably moderate (2+), were noted. No intracardiac shunting was appreciated. There was no evidence for pericardial effusion. The IVC was dilated and did not vary with the respiratory cycle indicating raised CVP. Calculated estimate of PA systolic pressure is moderately elevated at 50-55 mmHg. Atrial fibrillation with a moderate response was present. CONCLUSION:Borderline ascending aortic dilatation. Mild to moderate LV enlargement with severe global systolic dysfunction, centrally directed mitral regurgitation, probably moderately severe (3+), moderate LA enlargement, elevated pulmonary wedge pressure/moderate and probably passive pulmonary hypertension, and raised CVP. (See accompanying M-mode and Doppler reports for quantitation.) ECHOCARDIOGRAPHY M-MODE CALCULATIONS: HT: 74'' WT: 183 BSA: 2.09 m2 NORMALS AORTA: AORTIC ROOT 3.5-3.8 2.0-3.7 cm LEFT ATRIUM 4.5 1.9-4.0 cm MITRAL VALVE: EXCURSION 2.1 1.9-2.7 cm EPSS 2.6 <0.5 cm LT VENTRICLE: LVID (ED) 6.0 3.5-5.7 cm LVID (ES) 5.0 SEPTAL THICKNESS 1.2 0.6-1.1 cm SEPTAL EXCURSION 0.3 0.3-0.8 cm LVPW THICKNESS 1.0 0.6-1.1 cm LVPW EXCURSION 0.5 0.9-1.4 cm MINOR AXIS FS 1.7 25%-40% RT VENTRICLE: RVID (ED) 2.8 0.9-2.6 cm(up to 3cm if LLD) QUALITATIVE DOPPLER FLOW STUDIES MITRAL VALVE MR, probably moderately severe (3+) AORTIC VALVE -- TRICUSPID VALVE TR, probably moderate (2+) PULMONIC VALVE MD, probably trivial QUANTITATIVE DOPPLER FLOW STUDIES SAMPLE SITES VELOCITIES PEAK PRESSURE VALVE AREA and/or VALVE WINDOW (PEAK,M/SEC) DROP (GRADIENT) PRESSURE HALF-TIME MV (Diastole) 1.2 -- -- MV (Systole) 5.4 -- -- AO (Diastole) -- -- -- AO (Systole) 1.0 -- -- TV (Systole) 2.8 -- -- PV (Systole) 0.7 -- -- PV (Diastole) 1.7 LWIda:bart Job ID: [id number] Doc ID: [id number] Sergei Balderrama MD
[2017-03-02 08:37] LABS: Triiodothyronine (T3) Total 84 ng/dL (76-181)
== END 2017-02-28 16:20 | disposition short-term general hospital (02) ==
LOC: ED 11:25 → ICU 11:25
PROVIDERS: ADMIT Internal Medicine; ATTEND Internal Medicine